=== PATIENT | male | born 1990 | race Caucasian/White ===

== ENCOUNTER 2022-12-19 07:21 | Outpatient (CLI) | payer BC | END 2022-12-19 07:22 | disposition home or self-care (01) | LOC: ULT 07:21 | PROVIDERS: ATTEND Family Medicine | DX: R10.0 Acute abdomen (principal); R94.2 Abnormal results of pulmonary function studies; R16.0 Hepatomegaly, not elsewhere classified; K83.8 Other specified diseases of biliary tract | CPT/HCPCS: 76700 ==

== ENCOUNTER 2022-12-26 07:34 | Outpatient (CLI) | payer BC | END 2022-12-26 07:35 | disposition home or self-care (01) | LOC: TBSIIMAG 07:34 | PROVIDERS: ATTEND Specialist | DX: M47.22 Other spondylosis with radiculopathy, cervical region (principal) | CPT/HCPCS: 72141 ==